=== PATIENT | male | born 1930 | race Hispanic/Latino ===

== ENCOUNTER 2017-12-21 19:35 | Emergency (ER) | payer MEDICARE ==
[~2017-12-21 19:35] MED LIST: Sodium Chloride 0.9% 1,000 ML BAG ONE
[2017-12-21] MEDS ORDERED: Acetaminophen 500 MG TAB ONE (20:03)
[2017-12-21 20:05] LABS: Hemoglobin 11.9 g/dL (14.0-18.0); Red Blood Cell (RBC) Count 4.11 mill/uL (4.70-6.10); White Blood Cell (WBC) Count 5.8 thou/uL (4.8-10.8)
[2017-12-21 20:06] LABS: #Lymphocytes 0.4 thou/uL (1.20-3.40); #Monocytes 0.4 thou/uL (0.11-0.59); #Neutrophils 4.9 thou/uL (1.40-6.50); %Basophils 0.7 % (0.0-1.0); %Eosinophils 0.3 % (0.0-10.0); %Lymphocytes 7.7 % (21.0-51.0); %Monocytes 6.4 % (0.0-10.0); %Neutrophils 84.8 % (42.0-75.0); Mean Corpuscular HGB CONC 34.1 g/dL (32.0-36.0); Mean Platelet Volume 7.3 fL (7.4-10.4); Platelet Count 119 thou/uL (130-400)
[2017-12-21 20:26] LABS: INR-International Normal Ratio 1.1; PTT 32.9 SEC (22.9-36.1); Prothrombin Time 14.1 SEC (12.0-14.7)
--- NOTE | 2017-12-21 20:26 | RAD ---
CHEST ONE VIEW: 12/21/17 COMPARISON: 01/24/14, 05/11/17. HISTORY: Fever. FINDINGS: Left sided transvenous defibrillator with lead position over the right atrium and right ventricle. At herosclerosis of the aorta. Normal cardiac silhouette. The pulmonary vessels and hilum are normal. Co stophrenic angles are clear. No consolidation or masses. Chronic changes in the lung parenchyma are n oted. No pneumothorax or osseous abnormalities. Calcification along the left hemidiaphragm is unchang ed. IMPRESSION: 1. No acute cardiopulmonary process. 2. Atherosclerosis. 3. Chronic changes. POS: [facility]
[2017-12-21 20:33] LABS: Anion Gap 17 mmol/L (10-20); BUN (Urea Nitrogen) 34 mg/dL (8.4-25.7); Calc. Creatinine Clearance 0 mL/min (70-130); Carbon Dioxide 19 mmol/L (23-31); Chloride 107 mmol/L (98-107); Estimated GFR-MDRD 28; Sodium 139 mmol/L (136-145)
[2017-12-21 20:34] LABS: ALT (SGPT) 18 U/L (8-55); AST (SGOT) 24 U/L (5-34); Albumin 3.9 g/dL (3.4-4.8); Alkaline Phosphatase 64 U/L (40-150); Bilirubin, Total 0.7 mg/dL (0.2-1.2); Calcium 8.5 mg/dL (7.8-10.44); Globulin 2.3 g/dL (2.4-3.5); Glucose 150 mg/dL (83-110); Magnesium 2.1 mg/dL (1.6-2.6); Protein, Total 6.2 g/dL (5.8-8.1)
[2017-12-21 20:37] LABS: CKMB 2.2 ng/mL (0-6.6); Troponin I 0.031 ng/mL (< 0.028)
== END 2017-12-21 21:30 | disposition short-term general hospital (02) ==
LOC: MADERS 19:35
DX: R09.02 Hypoxemia (principal); N17.9 Acute kidney failure, unspecified; I25.2 Old myocardial infarction; E11.9 Type 2 diabetes mellitus without complications; E78.5 Hyperlipidemia, unspecified; I10 Essential (primary) hypertension; Z87.891 Personal history of nicotine dependence
CPT/HCPCS: 71046; 80053; 82553; 83605; 83735; 83880; 84443; 84484; 85025; 85610; 85730; 93005; J7050

== ENCOUNTER 2018-12-24 13:07 | Emergency (ER) | payer MEDICARE ==
[2018-12-24] MEDS ORDERED: Morphine 4 MG/ML VIAL ONE (13:45)
--- NOTE | 2018-12-24 14:02 | RAD ---
XR Tib Fib Lt Leg 2 View INDICATION: Foreleg pain and injury FINDINGS: Bones: No acute fracture or subluxation is evident. Joints: No acute abnormality. Soft tissues: No radiopaque foreign body is evident. IMPRESSION: No acute osseous abnormality.
--- NOTE | 2018-12-24 14:11 | RAD ---
XR Tib Fib Rt Leg 2 View INDICATION: Foreleg pain and injury FINDINGS: Bones: No acute fracture or subluxation is evident. Joints: No acute abnormality. Soft tissues: There are vascular clips within the medial soft tissues of the right foreleg. IMPRESSION: No acute osseous abnormality.
--- NOTE | 2018-12-24 14:15 | CT ---
CT Brain WO Con: 12/24/2018 1:42 PM CLINICAL HISTORY: Head injury. IMAGING TECHNIQUE: Multiple CT images were obtained of the brain without IV contrast. COMPARISON: July 31, 2010 from [facility]. FINDINGS: Infarct: No acute infarct is evident. 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 There is moderate chronic small vessel white matter ischemic change. Hemorrhage: None.. Hydrocephalus: None.. Basal cisterns: Normal.. Cerebral parenchyma: Normal.. Midline shift: None.. Cerebellum: Remote lacunar infarcts Brainstem: Normal. OTHER: Calvarium: Intact.. Visualized Paranasal sinuses: Clear.. Extracranial soft tissues:Normal. IMPRESSION: 1. No acute intracanal abnormality. 2. Remote chronic ischemic change.
--- NOTE | 2018-12-24 14:24 | RAD ---
LEFT ANKLE 3 VIEWS: Date: 12/24/28 HISTORY: Injury, left ankle pain. FINDINGS/IMPRESSION: The ankle mortise is maintained. No acute fracture or dislocation is seen. Soft tissue swelling is pr esent. POS: [facility]
== END 2018-12-24 14:30 | disposition home or self-care (01) ==
LOC: MADERS 13:07
DX: S80.12XA Contusion of left lower leg, initial encounter (principal); S80.11XA Contusion of right lower leg, initial encounter; I25.2 Old myocardial infarction; I25.10 Atherosclerotic heart disease of native coronary artery without angina pectoris; E78.5 Hyperlipidemia, unspecified; I10 Essential (primary) hypertension; N40.0 Benign prostatic hyperplasia without lower urinary tract symptoms; W18.30XA Fall on same level, unspecified, initial encounter
CPT/HCPCS: 70450; 96372; J2270